=== PATIENT | female | born 1970 | race Caucasian/White ===

== ENCOUNTER 2017-10-30 19:50 | Emergency (ER) | payer MEDICAID ==
[2017-10-30 19:59] VITALS: BMI 25.4
[2017-10-30 20:01] VITALS: RESP 18; O2SAT 98
--- NOTE | 2017-10-30 20:35 | ED PDOC ---
Arrival/HPI - General Historian: Patient - General Chief Complaint: High Blood Pressure Time Seen by Provider: 10/30/17 20:13 - History of Present Illness Narrative History of Present Illness (Text): Patient is a 47 year old female who no past medical history who presents to the emergency department for evaluation and treatment of elevated blood pressure. Patient states she went to an urgent care center for evaluation of left knee pain which began 4 days ago with no specific provoking event. Elevated blood pressure was noted at the urgent care center and patient was sent to ED for further management. Patient denies headache, vision changes, fever, chills, chest pain, SOB, abdominal pain, nausea, vomiting, diarrhea, and urinary symptoms. PMD: Does not follow with outpatient physician 10/30/17 20:29 (Sukhi Arnold) Past Medical History - Provider Review Nursing Documentation Reviewed: Yes - Travel History Have you recently traveled outside [place] w/in the past 3 mons?: No - Infectious Disease Hx of Infectious Diseases: None - Cardiac Hx Cardiac Disorders: No - Pulmonary Hx Respiratory Disorders: No - Neurological Hx Neurological Disorder: No - HEENT Hx HEENT Disorder: No - Renal Hx Renal Disorder: No - Endocrine/Metabolic Hx Endocrine Disorders: No - Hematological/Oncological Hx Blood Disorders: No - Integumentary Hx Dermatological Disorder: No - Psychiatric Hx Substance Use: No Family/Social History Family/Social History: No Known Family HX Smoking Status: Never Smoked Hx Alcohol Use: No Hx Substance Use: No Allergies/Home Meds Allergies/Adverse Reactions: Allergies No Known Allergies Allergy (Verified 10/30/17 19:59) Review of Systems - Review of Systems Constitutional: Normal Eyes: Normal ENT: Normal Respiratory: Normal Cardiovascular: Normal Gastrointestinal: Normal Genitourinary Female: Normal Musculoskeletal: Normal Skin: Normal Neurological: Normal Endocrine: Normal Hemo/Lymphatic: Normal Psychiatric: Normal Physical Exam Temperature: Afebrile Blood Pressure: Hypertensive Pulse: Regular Respiratory Rate: Normal Appearance: Positive for: Well-Appearing, Non-Toxic, Comfortable Pain Distress: None Mental Status: Positive for: Alert and Oriented X 3 - Systems Exam Head: Present: Atraumatic, Normocephalic Pupils: Present: PERRL Extroacular Muscles: Present: EOMI Conjunctiva: Present: Normal Mouth: Present: Moist Mucous Membranes Neck: Present: Normal Range of Motion Respiratory/Chest: Present: Clear to Auscultation, Good Air Exchange. No: Respiratory Distress, Accessory Muscle Use Cardiovascular: Present: Regular Rate and Rhythm, Normal S1, S2. No: Murmurs Abdomen: No: Tenderness, Distention, Peritoneal Signs Back: Present: Normal Inspection Upper Extremity: Present: Normal Inspection. No: Cyanosis, Edema Lower Extremity: Present: Normal Inspection. No: Edema Neurological: Present: GCS=15, CN II-XII Intact, Speech Normal Skin: Present: Warm, Dry, Normal Color. No: Rashes Psychiatric: Present: Alert, Oriented x 3, Normal Insight, Normal Concentration Vital Signs Temp Pulse Resp BP Pulse Ox 10/30/17 21:39 208/111 H 10/30/17 20:04 225/122 H 10/30/17 20:01 98.3 F 79 18 232/121 H 98 Medical Decision Making ED Course and Treatment: Assessment and Plan: Patient is a 47 year old female who no past medical history who presents to the emergency department for evaluation and treatment of elevated blood pressure. Asymptomatic Hypertension 10/30/17 20:36 - CMP rule out kidney injury 10/30/17 21:35 - CMP reviewed and appreciated- BUN and Creatinine WNL - patient ok to be discharged home on HCTZ (Sukhi Arnold) 10/30/17 21:52 Patient seen by resident and then evaluated by me. Presentation is consistent with asymptomatic hypertension. She has no complaint of knee pain and has normal knee exam on my evaluation. Her BP spontaneously improved in ED. Creatinine WNL. Discharged on hctz (Tonya Leblanc) - Lab Interpretations Lab Results: 10/30/17 21:08 Lab Results 10/30/17 21:08: Sodium 142, Potassium 3.9, Chloride 102, Carbon Dioxide 27, Anion Gap 16, BUN 16, Creatinine 0.7, Est GFR ( Amer) > 60, Est GFR (Non- Af Amer) > 60, Random Glucose 122 H, Calcium 9.0, Total Bilirubin 0.4, AST 24, ALT 17, Alkaline Phosphatase 93, Total Protein 8.0, Albumin 4.4, Globulin 3.6, Albumin/Globulin Ratio 1.2 - Medication Orders Current Medication Orders: Discontinued Medications Hydrochlorothiazide (Microzide) 12.5 mg PO STAT STA Stop: 10/30/17 21:32 Last Admin: 10/30/17 21:40 Dose: 12.5 mg Disposition/Present on Arrival - Present on Arrival Any Indicators Present on Arrival: No History of DVT/PE: No History of Uncontrolled Diabetes: No Urinary Catheter: No History of Decub. Ulcer: No History Surgical Site Infection Following: None - Disposition Have Diagnosis and Disposition been Completed?: Yes Disposition Time: 21:36 Patient Plan: Discharge - Disposition Diagnosis: Asymptomatic hypertension Disposition: HOME/ ROUTINE Condition: GOOD Additional Instructions: AREN DEWEY, thank you for letting us take care of you today. Your provider was Tonya Leblanc MD and you were treated for HIGH BLOOD PRESSURE. The emergency medical care you received today was directed at your acute symptoms. If you were prescribed any medication, please fill it and take as directed. It may take several days for your symptoms to resolve. Return to the Emergency Department if your symptoms worsen, do not improve, or if you have any other problems. Please contact your doctor or call one of the physicians/clinics you have been referred to that are listed on the Patient Visit Information form that is included in your discharge packet. Bring any paperwork you were given at discharge with you along with any medications you are taking to your follow up visit. Our treatment cannot replace ongoing medical care by a primary care provider outside of the emergency department. Thank you for allowing the [facility] team to be part of your care today. If you had an X-Ray or CT scan: A Radiologist will review the ED reading if any change in treatment is needed we will contact you. If you had a blood, urine, or wound culture: It will take several days for the results, if any change in treatment is needed we will contact you. If you had an STI test: It will take 48 hours for the results. Please call after 1 week if you have not heard back. Prescriptions: Hydrochlorothiazide [Microzide] 12.5 mg PO DAILY #30 cap Referrals: PCP,NO [Primary Care Provider] - Follow up with primary Forms: [facility] [employer] (Panamanian)
[2017-10-30 21:25] LABS: ALB/GLOB RATIO 1.2 (1.1-1.8); ALBUMIN 4.4 g/dL (3.0-4.8); ALT/SGPT 17 U/L (7-56); AST/SGOT 24 U/L (14-36); BLOOD UREA NITROGEN 16 mg/dL (7-21); GFR AFRICAN-AMERICAN > 60; GFR NON-AFRICAN AMERICAN > 60
[2017-10-30 21:41] VITALS: BP 208/111
[2017-10-30 22:00] VITALS: PULSE 82; TEMP 98.2
== END 2017-10-30 21:59 | disposition home or self-care (01) ==
LOC: ED 19:50
DX: I10 Essential (primary) hypertension (principal)